=== PATIENT | male | born 1930 | race Caucasian/White ===

== ENCOUNTER 2020-04-10 19:51 | Emergency (ER) | payer MEDICARE, OTHER ==
[~2020-04-10] VITALS: Ht 175.3 cm; Wt 77.2 kg
--- NOTE | 2020-04-10 20:50 | RAD ---
Exam: CT head and maxillofacial without contrast INDICATION: Fall this morning TECHNIQUE: Sequential axial images through the head and face were obtained without the administration of IV contrast. Comparisons: None FINDINGS: Head: No focal parenchymal lesion or hemorrhage is identified. There is no midline shift or sulcal effacement. No acute vascular territory infarction is identified. Taylor-white distinction is preserved. The ventricular system is within normal limits without compression hydrocephalus. The basal cisterns are well maintained. Face: Globes and intraorbital contents are normal. Mild mucosal thickening noted within the left maxillary sinus. No acute fractures. IMPRESSION: 1. Small amount of hemorrhagic material in the left nasal cavity. No acute fractures identified. 2. No acute intracranial abnormality. Exposure: One or more of the following in the visualized dose reduction techniques were utilized for this examination: 1. Automated exposure control 2. Adjustment of the MA and/or KV according to patient size Use of iterative of reconstructive technique Electronically signed by: Leah Sheikh MD (04/10/2020 8:47 PM) [facility]
--- NOTE | 2020-04-10 20:55 | PHYS DOC ---
Past History Past Medical History: Arrhythmia, CVA (BILL FAM APRN) Past Surgical History: Coronary Bypass Surgery (BILL FAM APRN) Alcohol Use: None (BILL FAM APRN) General Adult EDM: Chief Complaint: NOSEBLEED HPI: HPI: Patient is a 89-year-old male who presents to the emergency department with complaints of a left-sided nosebleed off and on today, nasal swelling, and nasal pain that began after he fell this morning at 930. Patient states he was seen by his primary care doctor this afternoon who prescribed him an antibiotic, and an inhaler for cough that he has. Patient denies any shortness of breath or increased cough he states that he wants to be evaluated for the nosebleed only at this time. Patient reports that he takes Plavix and a baby aspirin daily. He denies any loss of consciousness, neck pain, back pain, chest pain, palpitations, dizziness, or vision changes. Patient reports his last tetanus shot was less than 5 years ago. He currently rates his discomfort a 6 out of 10 on the pain scale, he denies any alleviating or exacerbating factors. (BILL FAM APRN) Review of Systems: Review of Systems: Complete ROS is negative unless otherwise noted in HPI. (BILL FAM APRN) Physical Exam: PE: See Above Constitutional: Well developed, well nourished, no acute distress, non-toxic appearance. [] HENT: Normocephalic, bilateral external ears normal; swelling noted to patient's nasal bridge without obvious deformity, bleeding present in the left nare, septal ecchymosis is appreciated without any hematoma present Eyes: PERRLA, EOMI, conjunctiva normal, no discharge. [] Neck: Normal range of motion, nontender, no stridor. [] Cardiovascular:Heart rate regular rhythm Lungs & Thorax: Respirations even and unlabored, no retractions, no respiratory distress, rhonchi throughout Skin: Warm, dry, no erythema, no rash; small abrasion noted to the superior nasal bridge, no active bleeding, no visible foreign body. [] Extremities: No cyanosis, ROM intact Neurologic: Alert and oriented X 3, no focal deficits noted. [] Psychologic: Affect normal, judgement normal, mood normal. [] (BILL FAM APRN) PE: Constitutional: Well developed, well nourished, no acute distress, non-toxic appearance HENT: Normocephalic, scant blood noted to left nare, septal ecchymosis noted, no septal hematoma noted, no blood in pharynx Eyes: PERRL, EOMI, conjunctiva normal, no discharge Neck: Normal range of motion, no tenderness, supple Lungs & Thorax: No respiratory distress, equal chest rise and fall Extremities: No tenderness, ROM intact, no edema Neurologic: Alert and oriented X 3, normal motor function, normal sensory function, no focal deficits noted Psychologic: Affect normal, judgment normal (DIONICIO RIVERA DO) Current Patient Data: Vital Signs: Vital Signs Date Time Temp Pulse Resp B/P (MAP) Pulse Ox O2 Delivery O2 Flow Rate FiO2 04/10/20 20:01 97.2 68 16 161/86 (111) 98 Room Air (BILL FAM APRN) EKG: EKG: [] (BILL FAM APRN) Radiology/Procedures: Radiology/Procedures: PROCEDURE: CT HEAD AND MAXILLOFACIAL WO Exam: CT head and maxillofacial without contrast INDICATION: Fall this morning TECHNIQUE: Sequential axial images through the head and face were obtained without the administration of IV contrast. Comparisons: None FINDINGS: Head: No focal parenchymal lesion or hemorrhage is identified. There is no midline shift or sulcal effacement. No acute vascular territory infarction is identified. Taylor-white distinction is preserved. The ventricular system is within normal limits without compression hydrocephalus. The basal cisterns are well maintained. Face: Globes and intraorbital contents are normal. Mild mucosal thickening noted within the left maxillary sinus. No acute fractures. IMPRESSION: 1. Small amount of hemorrhagic material in the left nasal cavity. No acute fractures identified. 2. No acute intracranial abnormality.[] (BILL FAM APRN) Heart Score: Risk Factors: Risk Factors: DM, Current or recent (<one month) smoker, HTN, HLP, family history of CAD, obesity. Risk Scores: Score 0 - 3: 2.5% MACE over next 6 weeks - Discharge Home Score 4 - 6: 20.3% MACE over next 6 weeks - Admit for Clinical Observation Score 7 - 10: 72.7% MACE over next 6 weeks - Early Invasive Strategies (BILL FAM APRN) Course & Med Decision Making: Course & Med Decision Making Pertinent Labs and Imaging studies reviewed. (See chart for details) 89-year-old male presented to the emergency department with concerns of nosebleeding, and nasal pain and swelling following a fall this morning. Patient reported taking Plavix and aspirin. CT the patient's head and maxillofacial was negative for any acute fractures. Magan-Synephrine was used to stop the bleeding in the patient's left nare. The patient was encouraged to not blow his nose, and instructed to continue taking the medications that were prescribed by his primary care doctor for his cough. He can use the Magan-Synephrine spray as needed to relieve nasal congestion but do not use this medication for more than 3 days. I instructed the patient to follow-up with his primary care doctor in the next 1 to 2 days for repeat evaluation. Patient verbalized an understanding of home care, medications, follow-up, and return to ED instructions and was in agreement with the plan of care. Patient was also evaluated by Dr. Rivera who agreed with the plan of care and treatment. [] (BILL FAM APRN) Dragon Disclaimer: Dragon Disclaimer: This electronic medical record was generated, in whole or in part, using a voice recognition dictation system. (BILL FAM APRN) Departure Departure: Impression: Primary Impression: Left-sided nosebleed Additional Impressions: Abrasion of nose without infection Facial injury Qualified Codes: S09.93XA - Unspecified injury of face, initial encounter Fall Qualified Codes: W19.XXXA - Unspecified fall, initial encounter Disposition: 01 DC HOME SELF CARE/HOMELESS Condition: STABLE Referrals: PCP,UNKNOWN (PCP) Patient Instructions: Facial or Scalp Contusion, [id number], Fall Prevention and Home Safety, [id number], Hypertension, [id number], Nosebleed, [id number] Additional Instructions: You may use nasal decongestant spray every 4 hours as needed for nasal congestion for up to 3 days. Do not blow your nose. Follow-up with your primary care doctor in 1 to 2 days for repeat examination. Continue taking the medications that were prescribed by your primary care doctor earlier today as prescribed. Return to the ER if your symptoms worsen or fever develops. Scripts Clonidine Hcl (CLONIDINE HCL) 0.1 Mg Tablet 0.1 MG PO TID PRN PRN for ELEVATED BP, SEE COMMENTS, #14 TAB Take for systolic (upper) blood pressure greater than 175 and/or diastolic (lower) blood pressure greater than 100. Prov: DIONICIO RIVERA DO 04/10/20 Attending Signature Attending Signature I have personally interviewed and examined the patient. All charts, labs, and imaging studies were reviewed. I agree with the PA/TOPOGRAPHICAL DRAFTER's findings, exam, and p bianca. (DIONICIO RIVERA DO) BILL FAM APRN Apr 10, 2020 20:55 DIONICIO RIVERA DO Apr 10, 2020 23:00
[2020-04-10] MEDS: PHENYLEPHRINE 1% NASAL DROP 30ML BOTTLE. NS ONE (21:00)
[2020-04-10] MEDS ORDERED: CLON0.1T PO (23:00)
[2020-04-10] MEDS ORDERED: cloNIDine HCL 0.1 MG TABLET ONE (23:04)
[2020-04-10 23:08] VITALS: BP 202/72
[2020-04-10] MEDS: cloNIDine HCL 0.1 MG TABLET PO ONE (23:08)
== END 2020-04-10 23:10 | disposition home or self-care (01) ==
LOC: ER 19:51
DX: S00.31XA Abrasion of nose, initial encounter (principal); S09.90XA Unspecified injury of head, initial encounter; R04.0 Epistaxis; R51.9 Headache, unspecified; Z86.73 Personal history of transient ischemic attack (TIA), and cerebral infarction without residual deficits; Z95.1 Presence of aortocoronary bypass graft; W18.39XA Other fall on same level, initial encounter; Y93.89 Activity, other specified; Y92.89 Other specified places as the place of occurrence of the external cause; Y99.8 Other external cause status
CPT/HCPCS: 70450; 70486; 99285-25

== ENCOUNTER 2020-11-16 19:02 | Emergency (ER) | payer MEDICARE ==
[~2020-11-16] VITALS: Ht 175.3 cm; Wt 87.2 kg
[~2020-11-16 19:02] MED LIST: CLON0.1T PO
--- NOTE | 2020-11-16 19:14 | PHYS DOC ---
Past History Past Medical History: Arrhythmia, CVA Additional Past Medical Histor: cardiac Past Surgical History: Coronary Bypass Surgery Alcohol Use: None Adult General Chief Complaint Chief Complaint: MEDICAL CLEARANCE [facility] HPI Patient is an 89-year-old male with a past medical history significant for glioblastoma, status post radiation with last radiation treatment 1 week ago, CAD, status post CABG, COPD, hypertension, hyperlipidemia stroke, and dementia currently on clopidogrel, amiodarone and metoprolol residing at a longterm who presents with family for medical clearance admission to [facility]. Per staff and family, patient was endorsing suicidal ideations today and tried to wrap the cord from the call light around his neck. States that they immediately took it off and it was not very tight and he had no injuries from this. Denies any recent travel, traumas, falls, illnesses, fevers, chest pain, shortness of breath, abdominal pain, nausea, vomiting, diarrhea, dysuria or blood in the stool. States that he did have one of his Covid vaccinations but has not had the other one yet. Otherwise denies any Covid/flu/cold symptoms. Endorses suicidal ideation, and dementia but denies any homicidal ideations or hallucinations. Review of Systems Review of Systems Review of systems otherwise unremarkable except noted in HPI Allergies Allergies Allergies Coded Allergies Type Severity Reaction Last Updated Verified No Known Drug Allergies 04/10/20 No Physical Exam Physical Exam Constitutional: Well developed, well nourished, no acute distress, non-toxic appearance. [] HENT: Normocephalic, atraumatic, bilateral external ears normal, oropharynx moist, no oral exudates, nose normal. [] Eyes: PERRLA, EOMI, conjunctiva normal, no discharge. [] Neck: Normal range of motion, no tenderness, supple, no stridor. [] Cardiovascular:Heart rate regular rhythm, no murmur [] Lungs & Thorax: Bilateral breath sounds clear to auscultation [] Abdomen: Bowel sounds normal, soft, no tenderness, no masses, no pulsatile masses. [] Skin: Warm, dry, no erythema, no rash. [] Back: No tenderness, no CVA tenderness. [] Extremities: No tenderness, no cyanosis, no clubbing, ROM intact, no edema. [] Neurologic: Alert and oriented X 3, cranial nerves intact outside of weakness in the right eye which is baseline per patient and family, generalized extremity weakness 4 out of 10 which is baseline per patient and family, sensation intact, baseline cognition per son Psychologic: Affect flat, judgement abnormal, mood normal, suicidal ideations, no homicidal ideations, no hallucinations. [] Current Patient Data Vital Signs Vital Signs Date Time Temp Pulse Resp B/P (MAP) Pulse Ox O2 Delivery O2 Flow Rate FiO2 11/16/20 19:11 67 16 93 Room Air 11/16/20 19:07 97.6 148/57 EKG EKG [] Radiology/Procedures Radiology/Procedures [] Heart Score C/O Chest Pain: No Risk Factors: Risk Factors: DM, Current or recent (<one month) smoker, HTN, HLP, family history of CAD, obesity. Risk Scores: Risk Factors: DM, Current or recent (<one month) smoker, HTN, HLP, family history of CAD, obesity. Course & Med Decision Making Course & Med Decision Making Patient is an 89-year-old male with dementia and suicidal ideation who presents for medical clearance admission to [facility]. Vital signs not concerning. Physical exam noted above. EKG noted above with no STEMI. Troponin elevated at 0.075. D-dimer elevated. Laboratory analysis notable for neutrophilic leukocytosis. Lab value abnormalities could possibly be from postop state/status post radiation treatment last week and steroid use but cannot exclude infection. CT of the chest with left pulmonary embolism, bilateral pulmonary effusions, and chronic mass with possible consolidation. Patient started on antibiotics in the emergency department. Discussed patient with it consultant Dr. Contreras for admission who accepted patient to [facility], but [facility] was out of bed so patient was transferred to [facility] for continued evaluation and treatment of SI, elevated troponin, PE, and pneumonia. Discussed with Dr. Contreras as well the appropriateness of anticoagulant administration for PE given patient's current brainstem tumor and recent radiation. Dr. Contreras suggested that it would probably be better to hold this as he is at high risk for bleeding. Discussed all findings with family and recommended transfer admission to [place] for these issues. Family grateful, verbalized understanding and agreed with plan of transfer. Dragon Disclaimer Dragon Disclaimer This electronic medical record was generated, in whole or in part, using a voice recognition dictation system. Departure Departure: Impression: Primary Impression: Suicidal ideation Additional Impressions: Elevated troponin Elevated d-dimer Neutrophilic leukocytosis Pleural effusion Pulmonary embolism Pneumonia Disposition: 02 SHORT TERM HOSPITAL Admitting Physician: Carolyn Contreras Condition: STABLE Referrals: PCP,UNKNOWN (PCP) Problem Qualifiers JEANETTE RANGEL MD Nov 16, 2020 19:14
[2020-11-16 19:39] LABS: BASO % 0 % (0-3); EOS % 0 % (0-3); HEMATOCRIT 34.8 % (39.0-53.0); HEMOGLOBIN 11.3 g/dL (13.0-17.5); LYMPH # 0.3 x10^3/uL (1.0-4.8); LYMPH % 2 % (24-48); MEAN CORPUSCULAR HEMOGLOBIN 29 pg (25-35); MEAN CORPUSCULAR HGB CONC 33 g/dL (31-37); MEAN CORPUSCULAR VOLUME 89 fL (79-100); MONO # 0.5 x10^3/uL (0.0-1.1); MONO % 3 % (0-9); NEUT # 15.5 x10^3uL (1.8-7.7); NEUT % 96 % (31-73); PLATELET COUNT 151 x10^3/uL (140-400); RED BLOOD COUNT 3.93 x10^6/uL (4.30-5.70); RED CELL DISTRIBUTION WIDTH 16.6 % (11.5-14.5); WHITE BLOOD COUNT 16.2 x10^3/uL (4.0-11.0)
[2020-11-16 19:53] LABS: CALCIUM 7.9 mg/dL (8.5-10.1); CREATININE 0.9 mg/dL (0.7-1.3); GFR 79.6; POTASSIUM 4.6 mmol/L (3.5-5.1)
[2020-11-16 19:59] LABS: ALBUMIN 2.3 g/dL (3.4-5.0); ALBUMIN/GLOBULIN RATIO 0.9 (1.0-1.7); TOTAL BILIRUBIN 0.4 mg/dL (0.2-1.0); TOTAL PROTEIN 4.8 g/dL (6.4-8.2)
--- NOTE | 2020-11-16 21:03 | EKG ---
[address] [address] Test Date: 2020-11-16 Test Time: 19:30:15 Pat Name: LETICIA LEY Department: Room: Gender: M [employer] Blowing Machine Operator: : [id number] Requested By: JEANETTE RANGEL Order Number: [id number] Reading MD: Measurements Intervals Herod Rate: 60 P: 3 NJ: 172 QRS: 90 QRSD: 92 T: 64 QT: 430 QTc: 430 Interpretive Statements SINUS RHYTHM NO SPECIFIC ECG ABNORMALITIES RI6.02 No previous ECG available for comparison
[2020-11-16 21:22] LABS: CLARITY,URINE CLEAR; COLOR,URINE YELLOW
[2020-11-16 21:23] LABS: BACTERIA,URINE 0 /HPF (0-FEW); BILIRUBIN,URINE NEG (NEG); GLUCOSE,URINE NEG (NEG); NITRITE,URINE NEG (NEG); RBC,URINE 0 /HPF (0-2); SQUAMOUS EPITHELIAL CELL,UR OCC /LPF; WBC,URINE RARE /HPF (0-4)
[2020-11-16 21:29] LABS: % LYMPHS 2 % (24-48); % MONOS 1 % (0-10); % SEGS 97 % (35-66); PLATELET CLUMP PRESENT; PLT ESTIMATE DECREASED (ADEQUATE)
[2020-11-16] MEDS ORDERED: IOHEXOL 350 MG/ML 100 ML VIAL. IV ONE (22:00)
--- NOTE | 2020-11-16 22:54 | RAD ---
CT HEAD INDICATION: Reason: elevated trop/ dimer / Spl. Instructions: / History: COMPARISON: 04/10/2020. Exposure: One or more of the following individualized dose reduction techniques were utilized for thi s examination: 1. Automated exposure control 2. Adjustment of the mA and/or kV according to patient size 3. Use of iterative reconstruction technique TECHNIQUE: 5 mm contiguous axial images were obtained from the skull base to the vertex in both bone and soft tissue algorithm. FINDINGS: Mild bilateral periventricular hypodensities likely chronic small vessel ischemic disease. Small old lacunar infarct right cerebellum, unchanged. No evidence of acute intracranial hemorrhage. No extra-axial fluid collections. No mass effect or midline shift. Ventricular size is appropriate. Basal cisterns are patent. No fractures identified.Taylor-white differentiation is preserved.Globes and orbits are within normal l imits. Paranasal sinuses and mastoid air cells are clear. IMPRESSION: No acute intracranial findings. Electronically signed by: Abdi Ignacio MD (11/16/2020 10:51 PM) [id number]
--- NOTE | 2020-11-16 23:36 | RAD ---
PQRS Compliance Statement: One or more of the following individualized dose reduction techniques were utilized for this examinat ion: 1. Automated exposure control 2. Adjustment of the mA and/or kV according to patient size 3. Use of iterative reconstruction technique CTA CHEST 11/16/2020 9:[address] angiography chest with contrast 11/16/2020 9:59 PM INDICATION: Elevated d-dimer and troponins. COMPARISON: CT chest 06/02/2017 TECHNIQUE: Axial CT images of the chest were obtained after the intravenous administration of nonioni c contrast. Coronal and sagittal reformats are provided. Maximum intensity projection images of the t horacic vasculature are provided. FINDINGS: The thyroid gland is normal in appearance. Right hilar lymph node measures 2.5 x 1.9 cm (series 5, im age 63). Additional borderline right hilar lymph nodes are present. There is a mediastinal left measu ring 10 mm (series 5, image 71). Subcarinal lymph node measures 1.3 cm. The heart size is within norm al limits. No significant pericardial effusion. Thoracic aorta is normal in course and caliber. Media n sternotomy changes are present. There is adequate opacification of the pulmonary arterial system. There is a filling defect involving the left lower lobar, segmental and subsegmental pulmonary arteries compatible with acute or chronic pulmonary embolism. There is consolidative change surrounding the left lower lobe pulmonary artery w hich appears to have been present on prior imaging from 2018. This could represent rounded atelectasi s. Underlying neoplastic process remains a differential consideration. Loculated pleural effusion homer ntified at the left lung base with volume loss in the left lower lobe. Small right pleural effusion with associated pleural thickening as may be seen with empyema. Adjacent consolidative change may represent atelectasis versus infiltrate. Moderate centrilobular pulmonary e mphysema. Visualized portions of the upper abdomen are within normal limits. No suspicious osseous lesions are visualized. Age-indeterminate minimal height loss at T7 with less than 15 percent height loss. Joe s noted involving the superior endplate of T9 appears chronic. IMPRESSION: 1. Acute or chronic pulmonary embolism involving the left lower lobe pulmonary artery. Moderate conso lidated change involving the central left lower lobe may represent rounded atelectasis. There is a sm all loculated left pleural effusion. Differential consideration would include underlying neoplastic p rocess and 3 month follow-up chest CT is recommended. 2. Small to moderate right pleural effusion with pleural thickening as may be seen with empyema or lo culated effusion. 3. Moderate centrilobular pulmonary emphysema. Right hilar lymphadenopathy may be reactive or metasta tic. 4. Superior endplate compression deformity at T7 with minimal height loss, age indeterminate. Correla te with point tenderness. If there is persistent clinical concern, further evaluation with MRI of the thoracic spine could be of benefit. FOR INTERNAL CODING PURPOSES Critical result: Findings discussed with Dr. Nicholas at 11/16/2020 11:25 PM. RESULT CODE: (C) Electronically signed by: Georgie Carcamo MD (11/16/2020 11:34 PM) [facility]
[2020-11-16] MEDS ORDERED: CONTRAST GIVEN. MC PRN (23:45)
[2020-11-16] MEDS ORDERED: cefTRIAXone SODIUM 1 GM VIAL ONE (23:48)
[2020-11-16] MEDS ORDERED: IV NORMAL SALINE 50ML 50 ML ONE (23:48)
[2020-11-17] MEDS ORDERED: AZITHROMYCIN 250 MG TABLET. PO ONE
[2020-11-17 01:10] VITALS: BP 117/59
== END 2020-11-17 02:30 | disposition short-term general hospital (02) ==
LOC: ER 19:02
DX: R45.851 Suicidal ideations (principal); I26.99 Other pulmonary embolism without acute cor pulmonale; J18.9 Pneumonia, unspecified organism; J90 Pleural effusion, not elsewhere classified; R77.8 Other specified abnormalities of plasma proteins; R79.1 Abnormal coagulation profile; D72.828 Other elevated white blood cell count; Z20.822 Contact with and (suspected) exposure to COVID-19; Z86.73 Personal history of transient ischemic attack (TIA), and cerebral infarction without residual deficits; Z95.1 Presence of aortocoronary bypass graft
CPT/HCPCS: 36415; 70450; 71275; 80053; 81001; 83735; 84484; 85007; 85025; 85379; 85610; 85730; 93005; 96365; 99285; C9803; J0696; P9612; Q9967; U0003